=== PATIENT | female | born 1995 | race Caucasian/White ===

== ENCOUNTER 2016-10-21 01:05 | Emergency (ER) | payer OTHER ==
[2016-10-21 01:13] VITALS: BP 119/70
== END 2016-10-21 02:34 | disposition home or self-care (01) ==
LOC: ED 01:05
DX: F41.9 Anxiety disorder, unspecified (principal); N39.0 Urinary tract infection, site not specified
CPT/HCPCS: 82962

== ENCOUNTER 2016-12-20 01:27 | Emergency (ER) | payer OTHER ==
[~2016-12-20] VITALS: Ht 152.4 cm; Wt 68.0 kg
[2016-12-20 03:34] VITALS: BP 109/64
== END 2016-12-20 03:34 | disposition home or self-care (01) ==
LOC: ED 01:27
DX: F41.9 Anxiety disorder, unspecified (principal)

== ENCOUNTER 2017-02-06 02:03 | Emergency (ER) | payer OTHER ==
[2017-02-06 03:28] LABS: BASOPHIL % 2.3 % (0-2); PLATELET COUNT 376 x10^3mcL (130-400); RED CELL DISTRIBUTION WIDTH 13.3 % (11.5-14.5)
[2017-02-06 03:33] LABS: CALCIUM 8.5 mg/dL (8.5-10.1); CARBON DIOXIDE 27.4 mmol/L (21-32); CHLORIDE SERUM 103 mmol/L (98-107); CREATININE SERUM 0.7 mg/dL (0.6-1.0); GFR1 > 60 mL/min; GLUCOSE SERUM 85 mg/dL (74-106); POTASSIUM SERUM 3.7 mmol/L (3.5-5.1); SODIUM SERUM 139 mmol/L (136-145)
[2017-02-06 03:38] LABS: ALBUMIN 3.7 g/dL (3.4-5.0); ALKALINE PHOSPHATASE 69 U/L (46-116); ALT/SGPT 33 U/L (14-59); AST/SGOT 22 U/L (15-37); BILIRUBIN TOTAL 0.6 mg/dL (0.20-1.00); TOTAL PROTEIN, SERUM 7.1 g/dL (6.4-8.2)
[2017-02-06 04:15] LABS: microscopic required? NO
[2017-02-06 04:29] VITALS: BP 110/65
[2017-02-06 04:34] LABS: UA SPECIFIC GRAVITY >=1.030 (1.005-1.035); urine erythrocyte NEGATIVE (NEGATIVE)
[2017-02-06 04:44] LABS: AMPHETAMINE QUAL UR POSITIVE (NEG <=1000)
== END 2017-02-06 04:29 | disposition home or self-care (01) ==
LOC: ED 02:03
PROVIDERS: Emergency Medicine
DX: R07.89 Other chest pain (principal); F41.9 Anxiety disorder, unspecified
CPT/HCPCS: 36415; Q0092

== ENCOUNTER 2017-02-14 10:17 | Emergency (ER) | payer OTHER ==
[2017-02-14 11:30] VITALS: BP 108/62
== END 2017-02-14 11:30 | disposition home or self-care (01) ==
LOC: ED 10:17
DX: S39.012A Strain of muscle, fascia and tendon of lower back, initial encounter (principal); F41.9 Anxiety disorder, unspecified; X58.XXXA Exposure to other specified factors, initial encounter; Y93.89 Activity, other specified; Y92.89 Other specified places as the place of occurrence of the external cause; Y99.8 Other external cause status

== ENCOUNTER 2017-04-11 22:54 | Emergency (ER) | payer OTHER ==
[~2017-04-11] VITALS: Ht 154.9 cm; Wt 74.8 kg
[2017-04-11 23:03] VITALS: Ht 154.9 cm; Wt 74.8 kg
[2017-04-12 02:40] VITALS: BP 105/62
== END 2017-04-12 02:40 | disposition home or self-care (01) ==
LOC: ED 22:54
DX: T18.198A Other foreign object in esophagus causing other injury, initial encounter (principal); F41.9 Anxiety disorder, unspecified; X58.XXXA Exposure to other specified factors, initial encounter; Y93.89 Activity, other specified; Y99.8 Other external cause status; Y92.89 Other specified places as the place of occurrence of the external cause
CPT/HCPCS: J1610

== ENCOUNTER 2017-06-12 06:48 | Emergency (ER) | payer OTHER ==
[~2017-06-12] VITALS: Ht 154.9 cm; Wt 77.1 kg
[2017-06-12 07:00] VITALS: Ht 154.9 cm; Wt 77.1 kg
[2017-06-12 08:00] LABS: AMYLASE 62 U/L (25-115); LIPASE 82 IU/L (73-393)
[2017-06-12 08:06] LABS: AMPHETAMINE QUAL UR NONE DETECTED (NEG <=1000)
[2017-06-12 09:17] VITALS: BP 102/75
== END 2017-06-12 09:36 | disposition home or self-care (01) ==
LOC: ED 06:48
PROVIDERS: Emergency Medicine
DX: R07.9 Chest pain, unspecified (principal); F41.1 Generalized anxiety disorder
CPT/HCPCS: 36415; 85378; G0480

== ENCOUNTER 2017-07-26 18:16 | Emergency (ER) | payer OTHER ==
[~2017-07-26] VITALS: Ht 154.9 cm; Wt 78.5 kg
[2017-07-26 18:31] VITALS: BP 115/81; Ht 154.9 cm; Wt 78.5 kg
== END 2017-07-26 21:22 | disposition left against medical advice (07) ==
LOC: ED 18:16
DX: Z53.21 Procedure and treatment not carried out due to patient leaving prior to being seen by health care provider (principal)

== ENCOUNTER 2017-09-08 13:50 | Emergency (ER) | payer OTHER ==
[~2017-09-08] VITALS: Ht 154.9 cm; Wt 78.7 kg
[2017-09-08 13:58] VITALS: Ht 154.9 cm; Wt 78.7 kg
[2017-09-08 16:08] LABS: BASOPHIL % 0.4 % (0-2); PLATELET COUNT 299 x10^3mcL (130-400); RED CELL DISTRIBUTION WIDTH 13.3 % (11.5-14.5)
[2017-09-08 16:14] LABS: CALCIUM 8.9 mg/dL (8.5-10.1); CARBON DIOXIDE 27.8 mmol/L (21-32); CHLORIDE SERUM 104 mmol/L (98-107); CREATININE SERUM 0.5 mg/dL (0.6-1.0); GFR1 > 60 mL/min; GLUCOSE SERUM 93 mg/dL (74-106); POTASSIUM SERUM 3.8 mmol/L (3.5-5.1); SODIUM SERUM 140 mmol/L (136-145)
[2017-09-08 17:00] VITALS: BP 121/86
== END 2017-09-08 17:00 | disposition home or self-care (01) ==
LOC: ED 13:50
PROVIDERS: Emergency Medicine
DX: R07.89 Other chest pain (principal); G47.9 Sleep disorder, unspecified
CPT/HCPCS: 36415; 83880; J1885; Q0092

== ENCOUNTER 2018-02-10 15:03 | Emergency (ER) | payer OTHER ==
[~2018-02-10] VITALS: Ht 154.9 cm; Wt 79.4 kg
[2018-02-10 15:12] VITALS: Ht 154.9 cm; Wt 79.4 kg
[2018-02-10 16:44] VITALS: BP 117/75
== END 2018-02-10 16:44 | disposition home or self-care (01) ==
LOC: ED 15:03
DX: S63.502A Unspecified sprain of left wrist, initial encounter (principal); J40 Bronchitis, not specified as acute or chronic; F41.9 Anxiety disorder, unspecified; W01.0XXA Fall on same level from slipping, tripping and stumbling without subsequent striking against object, initial encounter; Y93.89 Activity, other specified; Y92.89 Other specified places as the place of occurrence of the external cause; Y99.8 Other external cause status

== ENCOUNTER 2018-04-23 13:21 | Emergency (ER) | payer OTHER ==
[~2018-04-23] VITALS: Ht 154.9 cm; Wt 80.3 kg
[2018-04-23 13:28] VITALS: Ht 154.9 cm; Wt 80.3 kg
[2018-04-23 15:50] VITALS: BP 110/65
== END 2018-04-23 15:50 | disposition home or self-care (01) ==
LOC: ED 13:21
DX: R05 Cough (principal); F41.9 Anxiety disorder, unspecified
CPT/HCPCS: Q0092

== ENCOUNTER 2018-05-06 15:34 | Emergency (ER) | payer OTHER ==
[~2018-05-06] VITALS: Ht 154.9 cm; Wt 79.4 kg
[2018-05-06 15:40] VITALS: Ht 154.9 cm; Wt 79.4 kg
[2018-05-06 16:46] VITALS: BP 113/70
== END 2018-05-06 16:46 | disposition home or self-care (01) ==
LOC: ED 15:34
DX: J06.9 Acute upper respiratory infection, unspecified (principal); F41.9 Anxiety disorder, unspecified

== ENCOUNTER 2018-06-24 21:55 | Emergency (ER) | payer OTHER ==
[~2018-06-24] VITALS: Ht 154.9 cm; Wt 80.7 kg
[2018-06-24 22:01] VITALS: Ht 154.9 cm; Wt 80.7 kg
[2018-06-25 02:25] VITALS: BP 113/71
== END 2018-06-25 02:25 | disposition home or self-care (01) ==
LOC: ED 21:55
DX: J02.9 Acute pharyngitis, unspecified (principal); R05 Cough; F41.9 Anxiety disorder, unspecified
CPT/HCPCS: J1100; J7620